=== PATIENT | male | born 1945 | race Two or more races ===

== ENCOUNTER 2024-07-18 06:58 | Emergency (ER) | payer BC, MEDICARE ==
[~2024-07-18] VITALS: Ht 170.2 cm; Wt 65.0 kg
[2024-07-18 07:09] VITALS: O2SAT 95
[2024-07-18] MEDS ORDERED: TETANUS, DIPHTHERIA, PERTUSSIS VAC/PF 0.5ML (>10YR OLD) IM ONE (07:30)
[2024-07-18 08:01] VITALS: TEMP 36.94740
[2024-07-18 08:40] LABS: BASOPHILS % 0.6 % (0.0-2.0); DIFFERENTIAL COMMENT 0; EOSINOPHILS % 1.8 % (0.0-5.0); HEMATOCRIT. 39.4 % (42.0-52.0); HEMOGLOBIN. 13.3 g/dL (14.0-18.0); LYMPHOCYTES % 34.8 % (20.0-50.0); MEAN CORPUSCULAR HEMOGLOBIN 35.1 pg (28.0-32.0); MEAN CORPUSCULAR HGB CONC 33.8 g/dL (31.0-37.0); MEAN CORPUSCULAR VOLUME 104.1 fL (80.0-94.0); MEAN PLATELET VOLUME 8.9 fl (7.4-10.4); MONOCYTES % 7.1 % (2.0-8.0); NEUTROPHILS % 55.7 % (40.0-76.0); PLATELET 178 x1000/uL (130-400); RED BLOOD CELL COUNT 3.78 mill/uL (4.7-6.1); WHITE BLOOD COUNT 5.6 x1000/uL (4.5-11.0)
[2024-07-18 08:49] LABS: INR 0.9; PROTHROMBIN TIME 9.9 sec (9.6-11.0)
[2024-07-18 09:17] LABS: CHLORIDE 109 mEq/L (98-107); POTASSIUM 3.8 mEq/L (3.5-5.1); SODIUM 145 mEq/L (136-145)
[2024-07-18 09:18] LABS: CARBON DIOXIDE 28 mEq/L (21-32)
[2024-07-18 09:19] LABS: CALCIUM 8.8 mg/dL (8.7-10.4)
[2024-07-18 09:20] LABS: AMMONIA < 17 uMol/L (<32); TROPONIN I HIGH SENSITIVITY 6 ng/L (3.0-53)
[2024-07-18 09:23] LABS: CREATININE 0.9 mg/dL (0.6-1.3); GLUCOSE 103 mg/dL (70-105)
[2024-07-18 09:24] LABS: ETHANOL BLOOD 295 mg/dL (<10); UREA NITROGEN BLOOD 10 mg/dL (9-23)
[2024-07-18 09:25] LABS: ACETAMINOPHEN < 2 ug/mL (10-30); ALANINE AMINOTRANSFERASE 12 IU/L (10-49); ALBUMIN 3.5 g/dL (3.2-4.8); ASPARTATE AMINOTRANSFERASE 27 IU/L (<34); CREATINE KINASE 172 IU/L (46-171); PROTEIN TOTAL 6.4 g/dL (6.0-8.3)
[2024-07-18 09:26] LABS: BILIRUBIN DIRECT 0.2 mg/dL (<=3.0); BILIRUBIN TOTAL 0.7 mg/dL (0.1-1.0)
[2024-07-18 11:14] LABS: TROPONIN I HIGH SENSITIVITY 7 ng/L (3.0-53)
[2024-07-18 11:23] LABS: CLARITY URINE CLEAR (CLEAR); COLOR URINE ORANGE (YELLOW); GLUCOSE URINE NEGATIVE (NEGATIVE); KETONES URINE NEGATIVE (NEGATIVE); LEUKOCYTE ESTERASE URINE NEGATIVE (NEGATIVE); NITRITE URINE NEGATIVE (NEGATIVE); OCCULT BLOOD URINE 3+ (NEGATIVE); PROTEIN URINE TRACE (NEGATIVE); SPECIFIC GRAVITY URINE 1.012 (1.005-1.030); UROBILINOGEN URINE 0.2 E.U./dL (0.2-1.0)
[2024-07-18 12:15] LABS: *AMPHETAMINES SCREEN URINE NEGATIVE (NEGATIVE); *BARBITURATES SCREEN URINE NEGATIVE (NEGATIVE); *BENZODIAZEPINES SCREEN URINE NEGATIVE (NEGATIVE); *COCAINE SCREEN URINE NEGATIVE (NEGATIVE); METHADONE URINE SCREEN NEGATIVE (NEGATIVE); OPIATES URINE SCREEN NEGATIVE (NEGATIVE); PHENCYCLIDINE URINE SCREEN NEGATIVE (NEGATIVE)
[2024-07-18 12:16] LABS: CANNABINOID URINE SCREEN NEGATIVE (NEGATIVE); ECSTASY MDMA SCREEN URINE NEGATIVE (NEGATIVE)
[2024-07-18] MEDS: TETANUS, DIPHTHERIA, PERTUSSIS VAC/PF 0.5ML (>10YR OLD) IM ONE (12:53)
[2024-07-18 13:12] LABS: RBC URINE TNTC /hpf (0-2)
[2024-07-18 13:13] LABS: TRIPLE PHOSPHATE CRYSTAL URINE 1+ /lpf
[2024-07-18 13:14] LABS: SQUAMOUS EPITHELIAL CELL URINE FEW /lpf (RARE/1+); WBC URINE NONE SEEN /hpf (0-2)
[2024-07-18 13:15] LABS: BACTERIA URINE TRACE
[2024-07-18 14:30] VITALS: BP 132/70; PULSE 89; RESP 16; O2SAT 97
== END 2024-07-18 15:42 | disposition home or self-care (01) ==
LOC: ER 06:58
DX: S01.111A Laceration without foreign body of right eyelid and periocular area, initial encounter (principal); I49.9 Cardiac arrhythmia, unspecified; R51.9 Headache, unspecified; X58.XXXA Exposure to other specified factors, initial encounter; Y93.89 Activity, other specified; Y92.89 Other specified places as the place of occurrence of the external cause; Y99.8 Other external cause status
CPT/HCPCS: 12013; 36415; 71045; 73700; 74176; 80048; 80076; 80305; 80307; 80320; 80329; 81003; 82140; 82550; 84443; 84484; 85025; 86850; 86900; 90471; 90715; 93005; 99285; G0480